=== PATIENT | male | born 1945 | race Caucasian/White ===

== ENCOUNTER 2023-07-16 08:47 | Observation (INO) ==
--- NOTE | 2023-07-07 09:48 | PAT Medication Instructions ---
Medication Instructions Date of Service July 07, 2023 Home Medications apixaban 5 mg tablet (Eliquis) 5 mg PO BID aspirin 81 mg tablet,delayed release (Adult Aspirin Regimen) 81 mg PO QAM atorvastatin 40 mg tablet 40 mg PO HS diltiazem HCl 120 mg capsule,24 hr,extended release 120 mg PO HS ASK your prescriber and surgeon apixaban 5 mg tablet (Eliquis) 5 mg PO BID(in order for spinal or epidural anesthesia, Eliquis needs to be stopped 72 hours/3 days before surgery. Please check if okay with doctor that prescribes this to you) Take morning of surgery With a small sip of water, OTHERWISE NOTHING TO EAT OR DRINK AFTER MIDNIGHT: aspirin 81 mg tablet,delayed release (Adult Aspirin Regimen) 81 mg PO QAM (unless directed otherwise by surgeon) Take evening before surgery atorvastatin 40 mg tablet 40 mg PO HS diltiazem HCl 120 mg capsule,24 hr,extended release 120 mg PO HS Other Notes If you have any questions please call us at [phone] or [phone] or [phone] or [phone]
--- NOTE | 2023-07-08 12:55 | Anesthesiology Consultation ---
Date of Service July 08, 2023 Assessment & Plan (1) Encounter for pre-operative examination: - Cardiology office is going to fax holter monitor. Awaiting response from provider on reason holter monitor was advised. - Case discussed in detail with Dr. Sanchez who advised obtaining reason for holter monitor ordered by cardiology. He advised nothing additional is needed from his standpoint. - cardiology office note 05/26/23: "...atherosclerotic heart disease of [place] coronary artery without angina pectoris...denies chest pain. Patient overall is doing well. Previous and recent test results and medical options were thoroughly reviewed. risk factors modification were discussed...Continue routine care and followup. Afib: repeat echo is scheduled. Agreeable to holter...occlusion and stenosis of bilateral carotid arteries: notes: 11/2021 < 50% stenosis bilaterally. Repeat is scheduled..." - Patient requests PAT testing be faxed to his PCP Dr. Terrell Lilly and head cashier for continuity of care. - Eliquis instructions: Neuraxial and general anesthesia discussed with patient and his . They verbalized understanding if patient plans to proceed with spinal or epidural anesthesia, Eliquis needs to be stopped 72 hours/3 days before surgery. They were instructed to contact cardiology to ask if holding Eliquis 72 hours would be acceptable if he plans to proceed with neuraxial anesthesia. They inquired how determination would be made when Eliquis could be resumed and I advised that is to surgeon's determination post-op. I advised that if he chooses to not pursue neuraxial anesthesia or cardiology is not agreeable to Eliquis being stopped for 3 days he will need to contact PAT office. They verbalized full understanding and agreement, denied questions or concerns on this. - Patient and his requested a later start time which I advised is to the surgeon and OR's determination. I advised I can relay the request but patient would need to follow-up with surgeon's office for additional discussion. They verbalized understanding, denied additional questions or concerns regarding this. Jeovany with surgeon's office notified patient is requesting a later start time. Outpatient joint assessment: Patient is currently scheduled for inpatient pathway. If re-evaluated and patient/surgeon requests outpatient pathway, patient is not recommended candidate for outpatient joint program from anesthesia standpoint. Chart Review Chart Review: Pending: Refer to Additional Notes / Consult section and Patient seen in Pre Admission Testing Teaching & Discussion Pre-Anesthesia Teaching/Discussion Notes: Instructed NPO after midnight before surgery, except medications with 15 cc of water. Medication instructions provided according to the PAT guidelines. History Surgery Operation Date: 07/16/23 07:00 Proposed Procedures p Left Total Knee Arthroplasty - Jude Guerra MD Height/Weight Height: 5 ft 10 in Weight: 85.1 kg Allergies Allergy/AdvReac Type Severity Reaction Status Date / Time perfume Allergy Severe sob and Verified 07/06/23 14:37 cough No Known Drug Allergies Allergy Verified 07/06/23 14:37 Medications Home Medications Medication Instructions Recorded Confirmed Last Taken apixaban 5 mg tablet (Eliquis) 5 mg PO BID 10/01/22 07/06/23 Unknown aspirin 81 mg tablet,delayed 81 mg PO QAM 10/01/22 07/06/23 Unknown release (Adult Aspirin Regimen) atorvastatin 40 mg tablet 40 mg PO HS 10/01/22 07/06/23 Unknown diltiazem HCl 120 mg capsule,24 120 mg PO HS 10/01/22 07/06/23 Unknown hr,extended release magnesium 250 mg tablet 250 mg PO QAM 07/08/23 07/08/23 Unknown niacinamide 50 mg tablet mg PO QAM 07/08/23 Unknown sildenafil 25 mg tablet (Viagra) 25 mg PO DAILY PRN Edema 07/08/23 07/08/23 Unknown Additional Notes: Patient states is also taking niacinamide supplement, Viagra as needed and magnesium daily in the morning. These were added to EMR and on provided medication instructions. It was written on instructions and patient advised to stop niacinamide supplement at this time and to NOT take magnesium or Viagra morning of surgery. He verbalized understanding and agreement, denied additional medications/supplements, questions or concerns. Past Medical History Medical History (Updated 07/13/23 @ 09:07 by Jessica Dawn PA-C) Atrial fibrillation currently on eliquis; f/u yesica cadena Bilateral carpal tunnel syndrome BPH (benign prostatic hyperplasia) CAD (coronary artery disease) s/p angioplasty in 1992 Carotid artery stenosis Degenerative disc disease Degenerative joint disease (DJD) of hip History of COVID-19 September 2022 -> mild/moderate flu like symptoms - > denies hospitalization - >symptoms resolved History of Mohs micrographic surgery for skin cancer Hx of basal cell carcinoma Hx of squamous cell carcinoma Hyperlipidemia Hypertension controlled, stable per pt On anticoagulant therapy Patient denies h/o stroke, seizures, heart attack, heart failure, DM, blood clots/DVTs or blood transfusions. Exercise / Class Metabolic Activity II 4-5 Yardwork/Stairs/Walk up hill (denies chest discomfort or shortness of breath with 1 FOS) Past Family History Family History Daughter Family history of reaction to anesthesia "slow to wake up" Past Surgical History Surgical History History of cardiac cath [facility] 1986 -- sent to [facility], [place], operated by [facility], no stents; f/u dr. quach, [facility] History of carpal tunnel surgery of right wrist 05/19/23 History of cataract surgery bilateral History of colonoscopy History of esophagogastroduodenoscopy (EGD) History of prostate surgery "not sure what it was called, but it was done in the office" Hx of basal cell carcinoma excision Hx of colonoscopy Hx of coronary angioplasty [facility], [place], operated by [facility] 1986 Hx of squamous cell carcinoma excision S/P epidural steroid injection Past Anesthesia History No Hx of Anesthesia Complications and Other (daughters slow to wake after anesthesia ) History of PONV No Hx of PONV and No Hx of Motion Sickness Social History Smoking Status: Never smoker Do You Dip or Chew Tobacco: No Hx Alcohol Use: Yes Alcohol type: beer, wine and hard liquor alcohol intake frequency: 0-2 drinks per day (1-2 drinks with dinner) Hx Substance Use: No substance use type: does not use Review of Systems Patient denies chest pain, shortness of breath, dyspnea on exertion, snoring, witnessed apneas, reflux, fever, chills, cough, wheezing, or palpitations. Physical Exam Vital Signs Vitals BP 120/82 P 89 TEMP 98.6 SP02 95% on RA RESP 18 Physical Patient resting comfortably in chair in no acute distress, alert and oriented, responding appropriately throughout visit Full cervical extension range of motion without pain TMD 3.5 finger breadths Mallampati Score 3 Dentition: intact, denies chipped or loose teeth, caps/crowns, implants or bridges Lungs: normal respiratory effort. Good air movement, clear throughout to auscultation, no adventitious breath sounds Cardiac: irregularly irregular rhythm, no murmurs noted Carotid arteries: negative bruit bilat Lab Results Anesthesia Preop Results Results Anesthesia Widget: WBC 6.83 K/ul (4.8-10.8) 07/08/23 Hgb 16.8 g/dl (14.0-18.0) 07/08/23 Hct 49.6 % (42.0-52.0) 07/08/23 Plt 248 K/uL (130-400) 07/08/23 Na 139 mmol/L (136-145) 07/08/23 K 3.9 mmol/L (3.5-5.1) 07/08/23 Cl 106 mmol/L (98-107) 07/08/23 CO2 24 mmol/L (21-32) 07/08/23 BUN 18 mg/dl (6-23) 07/08/23 Creat 1.09 mg/dl (0.6-1.4) 07/08/23 Glucose Level 106 mg/dl (70-99(Fasting)) H 07/08/23 PT 11.1 Seconds (9.0-12.0) 07/08/23 PTT 31.5 Seconds (21.0-31.0) H 07/08/23 INR 1.0 (0.9-1.1) 07/08/23 Blood Type O Positive 07/08/23 Antibody Screen NEGATIVE 07/08/23 Testing Electrocardiogram Date: 05/26/23 Afib, rate 80 bpm Chest X-Ray Date: 07/08/23 No acute process
--- NOTE | 2023-07-10 09:35 | History & Physical Report ---
Date of Service July 10, 2023 Assessment & Plan (1) Left knee DJD: Patient has a long history of left knee pain and medial compartment arthritis previous failed conservative measures he would like to proceed with a left knee replacement. He does have a bit of flexion contracture which will get him to work hard on to next during the rehab process. Patient does have history of atrial fibrillation on Eliquis. We will stop this 3 days preop. We will start him on a prophylactic dose 24 hours postop. The risk minutes of total knee replacement explained to include but not limited to DVT PE infection neurological and vascular bleeding palm pain limb range of motion test is very live with his symptoms exceptor. Patient understands and desires to proceed. Informed consent is obtained. Physical plan to stay in the hospital overnight. Hopeful discharge postop day 1. History of Present Illness Chief Complaint: . Persistent left knee pain Primary Care Provider: Self, Referred . Patient is a 78-year-old gentleman who presents for surgical treatment of his left knee. He has a long history of gradual progressive increased left medial knee pain discomfort that is gotten worse over time. Is been through extensive conservative treatment including steroid shots and viscosupplementation. The shots have become less effective over time. Pain is mostly medial but some global pain. The more he is up onto more lately limps. He like to have his knee fixed. His walking tolerance is a couple blocks. Increased pain going up and down steps. He does have a history of a left knee arthroscopy 35 years ago. Allergies Allergy/AdvReac Type Severity Reaction Status Date / Time perfume Allergy Severe sob and Verified 07/06/23 14:37 cough No Known Drug Allergies Allergy Verified 07/06/23 14:37 Home Medications Medication Instructions Recorded Confirmed Type apixaban 5 mg tablet (Eliquis) 5 mg PO BID 10/01/22 07/06/23 History aspirin 81 mg tablet,delayed 81 mg PO QAM 10/01/22 07/06/23 History release (Adult Aspirin Regimen) atorvastatin 40 mg tablet 40 mg PO HS 10/01/22 07/06/23 History diltiazem HCl 120 mg capsule,24 120 mg PO HS 10/01/22 07/06/23 History hr,extended release magnesium 250 mg tablet 250 mg PO QAM 07/08/23 07/08/23 History niacinamide 50 mg tablet mg PO QAM 07/08/23 History sildenafil 25 mg tablet (Viagra) 25 mg PO DAILY PRN Edema 07/08/23 07/08/23 History Past Med/Surg History Medical History Atrial fibrillation currently on eliquis; f/u yesica cadena Bilateral carpal tunnel syndrome BPH (benign prostatic hyperplasia) CAD (coronary artery disease) Carotid artery stenosis Degenerative disc disease Degenerative joint disease (DJD) of hip History of COVID-19 September 2022 -> mild/moderate flu like symptoms - > denies hospitalization - >symptoms resolved History of Mohs micrographic surgery for skin cancer Hx of basal cell carcinoma Hx of squamous cell carcinoma Hyperlipidemia Hypertension controlled, stable per pt On anticoagulant therapy Surgical History History of cardiac cath [facility] 1986 -- sent to [facility], no stents; f/u dr. quach, [facility] History of carpal tunnel surgery of right wrist 05/19/23 History of cataract surgery bilateral History of colonoscopy History of esophagogastroduodenoscopy (EGD) History of prostate surgery "not sure what it was called, but it was done in the office" Hx of basal cell carcinoma excision Hx of colonoscopy Hx of coronary angioplasty [facility] 1986 Hx of squamous cell carcinoma excision S/P epidural steroid injection Family History Daughter Family history of reaction to anesthesia "slow to wake up" Social History Smoking Status: Never smoker Second Hand Exposure: Yes (hx); Do You Dip or Chew Tobacco: No; Hx Alcohol Use: Yes Alcohol type: beer, wine and hard liquor Hx Substance Use: No Preferred Language: Greek Communication Ability: Effective Clinical Cytopathologist Required: No Beliefs That Will Affect Care: None Current Living Situation: Spouse Feels Safe at Home: Yes Assistive Devices: None Review of Systems All systems reviewed & are unremarkable except as noted in HPI & below. Physical Exam . Physical examination reveals a pleasant middle-age male. Looks in pretty good health. His HEENT exam is benign. Neck is supple with no lymphadenopathy. Lungs clear to auscultation. Heart has a regular rate and rhythm. Abdomen soft nontender nondistended extremities grossly neuro vas intact as follows. Examination left knee reveals patient walks with a bit of a limp he is got varus alignment to his knee. He has bony hypertrophy medially. His range of motion is about 10 to 15 degrees short of full extension to 120 degrees of flexion. There is no instability. He does have some stiffness with hip motion. Neck trachea midline, no thyromegaly Respiratory normal respiratory effort, lungs clear to auscultation Cardiovascular RRR, no murmur, no edema Gastrointestinal (Abdomen) normal bowel sounds, soft, nontender, no hepatosplenomegaly Results & Data Results & Data Laboratory Results . Diagnostic Findings . A single x-ray of his pelvis was reviewed. Minimal arthritic change. X-rays of the knee were also reviewed. Shows advanced left knee medial compartment DJD. He is got complete loss of medial joint space on the 4 degree flexion films. This has progressed since his most recent films. PG Care Time/CCT Total # of Minutes Spent Total Time Spent with Patient: Total time spent is greater than 50% in coordination of care (as documented) at patient's floor/unit and/or counseling patient: Coding Level of Care Code None Diagnoses Left knee DJD M17.12
[~2023-07-16 08:47] MED LIST: ACETAMINOPHEN 500 MG TAB PO SCH; BUPIVACAINE 0.5 % 5 MG/1 ML PF 10ML VIAL ONE; BUPIVACAINE LIPOSOME/PF 266 MG, BUPIVACAINE/EPINEPHRINE 50 ML, SODIUM CHLORIDE 0.9% PF ... INFIL SCH; CeleBREX 200 MG CAP PO SCH; FAMOTIDINE 20 MG TAB PO SCH; LR 500ML BOLUS, THEN 15ML/HR IV SCH; LR 60ML/HR IV SCH; METOCLOPRAMIDE HCL 10 MG TABLET PO SCH; ROPIVACAINE 0.5% 5 MG/ML 30 ML VIAL ONE; TRANEXAMIC ACID 1,000 MG **IV Intra-op IV SCH; ceFAZolin 2000MG 2,000 MG/15 ML SYR IV SCH; dexAMETHasone**PF** 10 MG/ML VIAL IV SCH
[2023-07-16] MEDS ORDERED: PROPOFOL IV EMULSION 10 MG/ML 20 ML VIAL IV ONE ×3 (08:50→11:13)
[2023-07-16] MEDS ORDERED: MIDAZOLAM HCL 1 MG/ML 2ML VIAL ONE (08:50)
[2023-07-16] MEDS ORDERED: fentaNYL citrate PF 100 MCG/2 ML VIAL ONE (08:50)
[2023-07-16] MEDS ORDERED: LIDOCAINE 2% 2 ML VIAL/AMP(20MG/ML) INFIL ONE (08:50)
--- NOTE | 2023-07-16 08:59 | History & Physical Bridge Note ---
Date of Service July 16, 2023 History & Physical Bridge Note I have examined the patient, reviewed the History & Physical and in the interval since the performance of the History & Physical I have noted the following changes of clinical significance: no changes noted
[2023-07-16] MEDS ORDERED: BUPIVACAINE/EPINEPHRINE 0.25% 1:200,000 30 ML VIAL ONE (09:43)
[2023-07-16] MEDS ORDERED: BUPIVACAINE LIPOSOME 1.3% 266 MG/20 ML VIAL ONE (09:43)
[2023-07-16] MEDS ORDERED: SODIUM CHLORIDE 0.9% PF 50 ML VIAL ONE (09:43)
[2023-07-16] MEDS ORDERED: METOPROLOL TARTRATE 1 MG/ML VIAL IV ONE (11:11)
--- NOTE | 2023-07-16 11:48 | Operative Report ---
PG Post Operative Report Pre & Post Diagnosis Operation Date: 07/16/23 10:40 Pre-Op Diagnosis: Left Knee Advanced Degenerative Joint Disease Post-Op Diagnosis: Left Knee Advanced Degenerative Joint Disease I identified the patient and participated in the time-out.: Yes Procedure Operation Date: 07/16/23 10:40 Actual Procedures p Left Total Knee Arthroplasty(Left) - Jude Guerra MD Surgeon Jude Guerra MD Bus And Rail Operator Vishnu Romero PA-C Estimated Blood Loss 50 Findings Consistent with Post-Op Diagnosis Operative findings revealed advanced axial compartment arthritis in the medial side of his knee. 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 He had moderate degenerative changes elsewhere. He had a varus deformity to his knee and a moderate-sized knee joint effusion. Fairly stiff preoperative knee with full extension and passive flexion only to about 105 degrees. Specimens Left knee sent for pathology. Anesthesia Type Spinal MAC Disposition Accompanied Patient To Recovery: No Indications Patient 78-year-old gentleman said a long history of progressive left knee pain discomfort stiffness describes gotten worse over time has been to extensive conservative treatment which became less successful. X-rays showed moderate to advanced knee arthritis. He had a fairly stiff knee with swelling on. Failed all conservative measures. Elective C with total knee arthroplasty. Description of Procedure Operative implants consist of: 1. Biomet Vanguard size 70 left Po stabilized femoral component. 2. Biomet size 79 tibial tray. 3. 10 mm posterior stabilized polyethylene insert. 4. 34 x 8 and half all poly patella. The patient was taken the operating, identified, placed on the operating table supine position architectures were properly padded. IV antibiotics are by anesthesia team. A spinal anesthetic and abductor canal block had been provided in the holding area. A left thigh tent was then placed. Left lower extremities then prepped and draped in usual sterile fashion. The left leg was elevated exsanguinated with use of an Esmarch and a tourniquet placed at 300 mmHg. An anterior approach the left knee was then performed to longitudinal incision centered over the patella. Sharp dissection was carried through subcutaneous tissue down the extensor mechanism. A medial parapatellar arthrotomy incision was made. Some subperiosteal dissection was carried out medially. The fat pad was resected from Neath patella tendon. The lateral patellofemoral ligament was released. The patella was subluxated laterally and knee was flexed. The osteophytes taken on distal femur. The ACL and PCL were then released from distal femur and the tibia subluxated anteriorly. The external tibial alignment jig was then placed the interface the tibia and adjusted 14 mm medially. Proximal tibial cut was made remove about 2 mm of bone from the most deficient aspect medial tibial plateau. Some osteophytes taken off medially. The tibia sized to a size 79. Attention drawn to the femur. The distal femur was entered with a sharp drill. Intramedullary canal was suction. A 6 degree valgus left distal femoral cutting block was pinned in place. The distal femoral cut was made to take an additional 3 mm of bone off distal femur. The femur was then sized to a size 70. We downsize this about a half a size. The AP cutting block was pinned parallel to the epicondylar axis which was 4 degrees of external rotation. The anterior cut, anterior chamfer, posterior cut, posterior chamfer cuts were made. The box cutting guide was placed in just slight lateral and the box cut was made. The knee was flexed. The remnants of the medial and lateral menisci were excised. The osteophytes were taken off the posterior aspect of femur. A trial femoral component was placed. The tibial tray was pinned in maximum external rotation and the drill and stem punch were used to create defect in proximal tibia for the tibial tray. The knee was then trialed and the 10 mm insert fit most appropriately. Attention drawn the patella. The patella was cleaned of all soft tissue. Patella thickness measured 27 mm in thickness and we cut this down to 15. Was sized to a size 34 patella. The lug holes were drilled for the 34 patella. The lateral osteophyte was removed. Patella button was placed. Knee was taken through range of motion patella tracked nicely with no thumbs test. Attention drawn to place the permanent components. All trial components were removed. Bone plug was placed in the distal femur limit blood loss. Double batch Palacos G cement was mixed. Biomet Sevenceguard size 70 left posterior stabilized femoral component, size 79 tibial tray, a 10 mm pro stabilized polyethylene insert, and a 34 x 8-1/2 all Paller patella then cemented in place. The knee was brought out into full extension till cement hardened. Final cement check was then performed. Pericapsular tissues were injected with total of 100 cc of combination of 20 of Exparel, 30 cc normal saline, 50 cc of quarter percent Marcaine with epinephrine. Patient did receive 1 g tranexamic acid. The tourniquet was then let down for final tourniquet time of 62 minutes. Hemostasis assured use electrocautery. Extensor mechanism then closed with combination 1 PDS suture #1 Vicryl suture in a [id number] fashion. The extensor mechanism checked found to be intact with subcutaneous tissues then closed with 2-0 Dexon suture in a buried interrupted fashion the skin was closed skin crow. Leg was then cleaned and dried and a sterile dressing was Xeroform, 4 fours, sterile cast padding, Alexandre bandage were applied. Patient then transferred to the recovery room in stable condition. Patient tolerated the procedure well and there were no complications. Vishnu Romero, my physician child life assistant, was present for the entire procedure. His assistance was essential and required for appropriate patient positioning, prepping and draping, surgical exposure, performing the technical details of the operation, placement the implants, closure of the wound, and placement of the sterile bandage. I attest to the content of the Intraoperative Record and any orders documented therein. Any exceptions are noted below.
--- NOTE | 2023-07-16 12:18 | XRay Report ---
XR knee LT 1 or 2V routine HISTORY: 78 years-old Male Surgical Post Op left knee arthroplasty COMPARISON: None TECHNIQUE: 2 views of the left knee FINDINGS: Total joint arthroplasty with patellar resurfacing. No acute fracture, dislocation or unexpected opaq ue foreign body. IMPRESSION: Total joint arthroplasty with expected postoperative changes. ACT 112: Negative or not required by law. The above report was generated using voice recognition software. It may contain grammatical, syntax o r spelling errors. Electronically signed by: Sumeet Multani M.D. 07/16/2023 12:17 PM
--- NOTE | 2023-07-16 13:04 | Anesthesiology Progress Note ---
Date of Service July 16, 2023 Anesthesia Post Procedure Vital Signs Vital Signs: Temp Pulse Resp BP Pulse Ox O2 Del Method O2 Flow Rate 07/16/23 12:50 76 16 119/78 94 Room Air 07/16/23 12:40 82 13 122/77 93 Room Air 07/16/23 12:30 97.7 F 84 17 110/75 93 Room Air 07/16/23 12:20 85 15 109/70 94 Room Air 07/16/23 12:10 81 18 119/76 93 Room Air 07/16/23 12:00 76 16 107/70 94 Room Air 07/16/23 11:50 83 12 108/64 97 Oxymask 6 07/16/23 11:41 97.2 F L 89 15 102/69 94 Oxymask 6 07/16/23 09:15 98.4 F 93 H 20 155/91 H 98 Room Air Pain Intensity Left Knee: Pain Intensity: 0 Transfer of Care Handoff Completed per policy Notes Mental Status: alert / awake / arousable and participated in evaluation Patient Amnestic to Procedure: Yes Nausea / Vomiting: adequately controlled Pain: adequately controlled Airway Patency, RR, SpO2: stable & adequate BP & HR: stable & adequate Hydration State: stable & adequate Neuraxial Anesthesia: was administered and sensory block is resolving Anesthetic Complications: no major complications apparent and Pt Satisfied with anesthetic care
[2023-07-16] MEDS ORDERED: bisacodyL 10 MG SUPP PR PRN (14:49)
[2023-07-16] MEDS ORDERED: NALOXONE HCL 0.4 MG/1 ML VIAL/CARP IV PRN (14:49)
[2023-07-16] MEDS ORDERED: HYDROmorphone INJ 0.5 MG/0.5 ML SYR IV PRN (14:49)
[2023-07-16] MEDS ORDERED: SILDENAFIL 25 MG PO PRN (14:49)
[2023-07-16] MEDS ORDERED: MAGNESIUM HYDROXIDE SUSP 30 ML UDC PO PRN (14:49)
[2023-07-16] MEDS ORDERED: SODIUM CHLORIDE 0.9% 1,000 ML IV SCH (14:49)
[2023-07-16] MEDS ORDERED: METOCLOPRAMIDE HCL INJ 5 MG/ML 2 ML VIAL IV PRN (14:49)
[2023-07-16] MEDS ORDERED: ONDANSETRON INJ 2 MG/ML 2 ML VIAL IV PRN (14:49)
[2023-07-16] MEDS ORDERED: oxyCODONE HCL IR 5 MG TAB (IMMEDIATE RELEASE) PO PRN (14:49)
[2023-07-16] MEDS: KETOROLAC TROMETHAMINE 15 MG/ML VIAL IV SCH ×2 (15:43→20:41)
[2023-07-16] MEDS: ACETAMINOPHEN 500 MG TAB PO SCH (16:30)
[2023-07-16] MEDS ORDERED: TRANEXAMIC ACID / 0.7% NACL 1,000 MG/100 ML BAG IV SCH (17:45)
[2023-07-16] MEDS: ceFAZolin 2000MG 2,000 MG/15 ML SYR IV SCH (19:16)
[2023-07-16] MEDS: DOCUSATE SODIUM 100 MG CAP PO SCH (20:41)
[2023-07-16] MEDS ORDERED: SENNA 8.6 MG TAB PO SCH ×2 (21:00)
[2023-07-16] MEDS ORDERED: dilTIAZem HCL 120 MG CAPCR PO SCH (21:00)
[2023-07-16] MEDS ORDERED: ATORVASTATIN 40 MG TAB PO SCH (21:00)
[2023-07-17] MEDS: ACETAMINOPHEN 500 MG TAB PO SCH ×2 (02:33→09:30)
[2023-07-17] MEDS: ceFAZolin 2000MG 2,000 MG/15 ML SYR IV SCH (02:33)
[2023-07-17] MEDS: KETOROLAC TROMETHAMINE 15 MG/ML VIAL IV SCH ×2 (02:34→08:55)
[2023-07-17 06:25] LABS: Hematocrit (blood only) 41.6 % (42.0-52.0); Mean Corpuscular Hemoglobin 28.1 pg (25.0-34.0); Mean Corpuscular Hgb Conc 33.7 g/dL (32.0-36.0); Mean Corpuscular Volume 83.4 fL (80.0-100.0); Mean Platelet Volume 9.7 fL (9.4-12.4); Platelet Count 221 K/uL (130-400); RDW Coefficient of Variation 12.5 % (11.5-14.5); RDW Standard Deviation 37.7 fL (36.4-46.3); Red Blood Count 4.99 M/uL (4.70-6.10); White Blood Count 17.92 K/ul (4.8-10.8)
[2023-07-17 06:36] LABS: BUN Creatinine Ratio 17.2 (10-20); Calcium 8.4 mg/dl (8.6-10.3); Creatinine Clr Calc Pharmacy 55.9 ml/min; Est GFR (African American) 70.5 ml/min; Est GFR (Non-African American) 60.8 ml/min; Potassium 4.2 mmol/L (3.5-5.1)
[2023-07-17] MEDS ORDERED: dexAMETHasone 10 MG in SYRINGE 0 ML IV SCH (08:00)
--- NOTE | 2023-07-17 08:02 | Orthopedic Progress Note ---
Date of Service July 17, 2023 Assessment & Plan (1) Status post left knee replacement: Pt/ot dvt PROPHYLAXIS Pain controll. Disposition. D/C to home with home health Subjective . &8 year old POD #1 TKR doing well. NO CP or SOB. PAIN CONTROLLED Review of Systems All systems reviewed & are unremarkable except as noted in HPI & below. Physical Exam . Pleasnat male looks comfortable. Left Leg well aligned. Dressing in place. N/V intact Respiratory normal respiratory effort, lungs clear to auscultation Cardiovascular RRR, no murmur, no edema Gastrointestinal (Abdomen) normal bowel sounds, soft, nontender, no hepatosplenomegaly Results & Data Results & Data Laboratory Results . Diagnostic Findings . PG Care Time/CCT Total # of Minutes Spent Total Time Spent with Patient: Total time spent is greater than 50% in coordination of care (as documented) at patient's floor/unit and/or counseling patient: Coding Level of Care Code 96385 Post Operative Follow-Up Diagnoses Status post left knee replacement Z96.652
[2023-07-17] MEDS: DOCUSATE SODIUM 100 MG CAP PO SCH (08:52)
[2023-07-17] MEDS ORDERED: ASPIRIN 81 MG ECTAB PO SCH (09:00)
[2023-07-17] MEDS ORDERED: TAMSULOSIN HCL 0.4 MG CAP PO SCH (09:00)
[2023-07-17] MEDS ORDERED: MULTIVITAMIN TAB PO SCH (09:00)
[2023-07-17] MEDS ORDERED: MAGNESIUM OXIDE 400 MG TAB PO SCH (09:00)
[2023-07-17] MEDS ORDERED: APIXABAN 2.5 MG TAB PO SCH (12:00)
== END 2023-07-17 12:51 | disposition home health service (06) ==
LOC: ASU 08:47 → 3E 08:47